=== PATIENT | male | born 1950 | race Caucasian/White ===

== ENCOUNTER → 2020-03-18 13:06 | Outpatient (CLI) | payer BC, SELFPAY ==
--- NOTE | ~2020-03-18 | XR_ITS ---
XR lumbar spine 6V w bending DATE: 03/18/2020 13:44 INDICATION: Back pain TECHNIQUE: AP, lateral, flexion and extension lateral, bilateral oblique and coned lateral lumbosacra l views COMPARISON: 12/17/2015 lumbar spine 07/20/2017 MRI lumbar spine FINDINGS: There is very severe degenerative disc disease throughout the lower thoracic and particular ly the lumbar spine with virtual obliteration of the lumbar interspaces and prominent degenerative sp urring as well as some urination and vacuum phenomenon at all levels. No fracture or bone destruction. The lumbar pedicles are intact. The sacroiliac joints are intact. IMPRESSION: Severe degenerative disc disease throughout the lumbar and lower cervical spine Reviewed, dictated and finalized at location A. ER BABYSITTER IMPRESSION: Severe degenerative disc disease throughout the lumbar and lower ce rvical spine
== END ==
PROVIDERS: PCP Family Medicine; Visit Provider Family Medicine
DX: G89.29 Other chronic pain (principal); M19.90 Unspecified osteoarthritis, unspecified site; M54.9 Dorsalgia, unspecified; M54.30 Sciatica, unspecified side; M54.16 Radiculopathy, lumbar region; M51.36 Other intervertebral disc degeneration, lumbar region
CPT/HCPCS: 72114

== ENCOUNTER → 2021-12-08 08:57 | Outpatient (CLI) | payer BC, SELFPAY ==
--- NOTE | ~2021-12-08 | XR_ITS ---
EXAMINATION: XR shoulder LT min 2V DATE: 12/08/2021 09:10 INDICATION: Left shoulder pain. TECHNIQUE: 4 views of left shoulder were obtained. COMPARISON: None. FINDINGS: Bone alignment is normal. No fracture. There is severe osteoarthritis of acromioclavicular joint and moderate osteoarthritis of glenohumeral joint. There is a loose body in bicipital groove. IMPRESSION: 1. Polyarticular osteoarthritis. Reviewed, dictated and finalized at location B.
== END ==
PROVIDERS: PCP Family Medicine; Visit Provider Family Medicine
DX: M25.512 Pain in left shoulder (principal); M19.012 Primary osteoarthritis, left shoulder
CPT/HCPCS: 73030

== ENCOUNTER 2022-09-22 12:48 | Outpatient (CLI) | payer BC, SELFPAY ==
--- NOTE | ~2022-09-22 | XR_ITS ---
Clinical Indication: Shortness of breath PA and lateral views of the chest: Comparison: 01/04/2019 Findings: The lungs are clear, without evidence of focal consolidation or pleural effusion. Cardiome diastinal silhouette is within normal limits. Bones and soft tissues are unremarkable. Impression: Normal chest. Reviewed, dictated and finalized at [facility]. Impression: Normal chest.
== END 2022-09-22 12:49 | disposition home or self-care (01) ==
LOC: ANHIMG 12:52
PROVIDERS: PCP Family Medicine; Visit Provider Nurse Practitioner
DX: R06.02 Shortness of breath (principal); R07.9 Chest pain, unspecified
CPT/HCPCS: 71046

== ENCOUNTER 2022-10-13 10:19 | Outpatient (CLI) | payer BC, SELFPAY ==
[2022-10-13 10:56] LABS: Amylase 84 U/L (30-110); Lipase 96 U/L (23-300)
[2022-10-13 10:57] LABS: Partial Thromboplastin Time 31.2 SECONDS (22.3-36.8); Prothrombin Time 14.1 Seconds (11.1-14.7)
== END 2022-10-13 10:20 | disposition home or self-care (01) ==
LOC: ANHSURGERY 10:23
PROVIDERS: Anesthesiology; PCP Family Medicine; Visit Provider Surgery
DX: Z01.818 Encounter for other preprocedural examination (principal); K80.50 Calculus of bile duct without cholangitis or cholecystitis without obstruction; N18.30 Chronic kidney disease, stage 3 unspecified
CPT/HCPCS: 36415; 82150; 83690; 85610; 85730; 86850; 86900; 86901

== ENCOUNTER 2022-10-18 00:40 | Day surgery (SDC) | payer BC, SELFPAY ==
--- NOTE | 2022-10-11 10:47 | PC.NURSE ---
Report to the Outpatient Waiting Room, entrance under the green pavilion located off [facility], at time __0600 on date __10/18/22 . Planned Procedure Time: __729 . Time changes happen often and if your time is changed the preop area will call you the afternoon before. - You and your visitor will be asked to self-screen and do not enter if you have any COVID symptoms. - A mask is optional within the hospital at this time. Patients may have clear liquids (water, carbonated beverages, clear teas, apple juice) until 3 hours prior to surgery with a maximum of 20 ounces. - No food from midnight until time of surgery - Infants may have breast milk until 4 hours before surgery, infant formula 6 hours prior to surgery. - Children will be allowed to drink immediately following surgery. If applicable, please bring a bottle or sippy cup to assist with drinking. Juice, water, soda, and popsicles are readily available. For infants on formula, please bring formula the day of surgery. Pacifiers are allowed. Take the following medications with a SIP of water the morning of surgery: __AMLODIPINE DO NOT STOP ANY OF YOUR OTHER PRESCRIPTION MEDICATIONS PRIOR TO SURGERY ?EXCEPT THE FOLLOWING Medications to discontinue per physician ___PT STATES LAST DOSE 10/04/22 ALL VITAMINS AND SUPPLEMENTS HIBICLENS SHOWER MORNING OF SURGERY Please no make-up, nail wolof, hairspray, perfume, deodorant, or body powder the day of surgery. No jewelry (including any body piercings) or valuables the day of surgery, leave them at home. Please take a shower or bath the night before, or the morning of, surgery with an antibacterial soap. Wear comfortable, loose fitting clothing. Children are encouraged to wear pajamas. - Jewelry must be removed prior to entering the operating room. Rings and piercings that are not removed may be cut off. - The hospital will not accept responsibility for valuables. - Please leave all valuables, including medications, at home the day of surgery. If you are going home after surgery, a licensed sanitation truck driver must drive you home. - NO public transportation without another adult if you receive anesthesia. - We recommend that an adult stay with you for 24 hours following discharge. - We also recommend that you do not drive, make important decision, drink alcoholic beverages, or take any drugs that were not prescribed by your health care provider for at least 24 hours after your discharge time Follow any additional instructions given to you from your surgeon. If you or anyone in your household have experienced Covid symptoms in the past week, please notify your surgeon or the nurse liaison at the phone number below for possible testing. Telephone instructions given to _PATIENT and asked if any additional questions and then verbalized understanding. Patient advised to call surgeon office or pre surgery nurse liaison [phone] if any additional questions.
[2022-10-11 11:06] VITALS: BMI 27.2
[2022-10-18] VITALS (11 sets, daily range): BP systolic 110–153; BP diastolic 50–97; PULSE 49–76; RESP 14–20; TEMP 36.1–36.7; O2SAT 96–100
[2022-10-18] MEDS: ACETAMINOPHEN 500 MG TABLET 1000 MG PO (06:32)
--- NOTE | 2022-10-18 07:09 | WPDANESEPPF ---
Anes - Initial Pre Proc Eval Procedure: Operation Date: 10/18/22 07:30 Proposed Procedures p Laparoscopic Cholecystectomy, Possible Open - Stevenson Villagran MD Date/Time: 10/18/22 07:09 Surgeon: Stevenson Villagran MD Pre Op Diagnosis: billiary colic secondary gall stones Patient Data Age: 72 Gender: M Height: 1.78 m Weight: 85.2 kg Last Vital Signs Temp 96.9 F L 10/18/22 06:22 Pulse 49 L 10/18/22 06:22 Resp 16 10/18/22 06:22 BP 153/58 H 10/18/22 06:22 Pulse Ox 99 10/18/22 06:22 O2 Del Method Room Air 10/18/22 06:22 Allergies Allergy/AdvReac Type Severity Reaction Status Date / Time No Known Allergies Allergy Verified 10/18/22 06:26 Home Medications Medication Instructions Recorded Confirmed Type eflciks-spyojfdzq-qcnv tablet 1 tablet PO DAILY 01/04/19 10/11/22 History coQ10 (ubiquinol) 100 mg capsule 100 mg PO DAILY 01/04/19 10/11/22 History glucosamine sulf dipot 1 cap PO DAILY 01/04/19 10/11/22 History chlr,msm,chond 550 mg-C 30 mg-damian 1 mg capsule (Glucosamine Chondroitin) multivitamin,xq-nmar-tlxhhjkv 1 tablet PO DAILY 01/04/19 10/11/22 History (Complete Multivitamin tablet) diazepam 5 mg tablet 5 mg PO BID PRN sleep #180 tabs 03/01/22 10/11/22 Rx amlodipine 5 mg tablet See Rx Instructions .Route 04/26/22 10/11/22 Rx .COMPLEX #90 tabs pantoprazole 40 mg tablet,delayed 40 mg PO DAILY 09/28/22 10/11/22 History release Patient hx anesthesia problems: none Family hx anesthesia problems: none Results Review: All pre-operative results and documents have been reviewed as part of the pre-operative evaluation. [facility] Past Medical History Medical History Arthritis Chronic back pain Chronic GERD CKD (chronic kidney disease) stage 3, GFR 30-59 ml/min COPD (chronic obstructive pulmonary disease) STATES BEGINNING OF COPD NO INHALERS HTN (hypertension) Surgical History Surgical History History of surgical removal of ganglion cyst Status post knee replacement Partial right oxford Family History Family History Father Hypertension Family history of cardiovascular disease Acute myocardial infarction X2 Mother Hypertension Heart disease Other No family history of diabetes mellitus No family history of malignant neoplasm Social History Social History Social History: The patient smoked for about 20 years. He is to smoke 1 pack a cigarettes a day. He is retired from working for the [employer] in maintenance. Patient uses marijuana and last time he smoked was about 3 weeks ago. Designates himself to be a full code and his Alis is his durable power mergers and acquisitions attorney. Smoking packs per day: 1 Smoking cigarettes per day: 20.0 Years smoked: 20 Smoking pack-years: 20.00 Smoking status: Former smoker Tobacco type: cigarettes Smoking end date: 02/21/86 Alcohol intake: never Substance use: current Substance use type: marijuana Other substance usage details: EVERY NIGHT-INSOMNIA Lack of Transportation: No Lack of Food: Never True Current Housing: I Have Housing Concerned About Future Housing: No Difficulty Paying Gas/Electric Bills: No Difficulty Paying for Meds: No Currently Unemployed: No Education: Associate Degree Difficulty w/ Childcare or Family Care: No Living arrangements: with family Occupation/Education: retired Additional occupation/education comments: government Gender identity (if verbalized by the patient): Male Spiritual care concerns: No Agree to blood products: Yes Mercedess - Kelli Final PreProcedure Day of Procedure 10/18/22 07:09 Patient weight: normal Heart: regular rate and rhythm Lungs: clear to auscultation Airway: Mallampati scale class
[2022-10-18] MEDS: LACTATED RINGERS 1,000 ML 30 ML IV CONT (07:24)
--- NOTE | 2022-10-18 07:25 | WPDHPUPDATE1 ---
History and Physical Update Update Date/Time: 10/18/22 07:25 History and Physical has been reviewed, including an updated exam of the patient. There are NO changes in the patient's condition. Risks, benefits, and alternatives have been discussed and questions answered. Patient agrees to proceed with procedure.
[2022-10-18] MEDS: ceFAZolin 2 GM/D5W 50 ML 2 GM/50 ML BAG IVPB (07:30)
[2022-10-18] MEDS: LIDO 1%/EPINEPHRINE 1:100,000 20 ML VIAL INFILTRATE (08:09)
[2022-10-18] MEDS: BUPivacaine HCL 0.5% 10 ML AMP 20 ML INFILTRATE (08:10)
[2022-10-18] MEDS: KETOROLAC 15 MG/ML VIAL (*BKC) IV PUSH (08:31)
--- NOTE | 2022-10-18 08:55 | W.PM.PROC2 ---
Procedure Note - Detailed Date of Procedure 10/18/22 Pre-op Diagnosis Billiary colic secondary gall stones Post-op Diagnosis Other (Chronic cholecystitis secondary to cholelithiasis) Procedure Performed Laparoscopic cholecystectomy Surgeon Stevenson Villagran MD Credit Reporting Clerk AKOSUA Carrillo Anesthesia General Indications Patient is a 72-year-old gentleman who has been having chronic epigastric right upper abdominal pain made worse with eating fatty foods. Abdominal ultrasound shows multiple gallstones. He presents now for elective laparoscopic cholecystectomy. Findings The gallbladder wall was thickened with adhesions of the omentum to the gallbladder wall. This was consistent with chronic inflammatory changes. No acute inflammatory changes were noted. Description of Procedure After informed consent was obtained patient brought to the operating room was placed supine position and general endotracheal anesthesia was administered. The abdomen was then prepped draped usual sterile fashion. A time-out was then performed correctly identifying the patient as well as procedure to be performed. He was given perioperative IV antibiotics. I then utilized a 5mm Optiview port and the abdomen the left upper quadrant 2 with a direct optical insertion. Once inside the abdomen insufflated to adequate pneumoperitoneum of 15mmHg of CO2. There were no adhesions to obscure the view of the periumbilical regions were then placed a 5mm trocar port a periumbilical position and then a 10mm trocar port in the epigastric position. Two more 5mm trocar ports placed in right subcostal position. Initially the omentum was draping over the gallbladder. I pulled down on the omentum within saw some adhesions of the omentum to the gallbladder wall. These were then divided utilizing electrocautery. Was then able to hold the gallbladder at the dome laparoscopic grasper and elevated gallbladder up over the right upper lid was right shoulder. I continue stripping down omental adhesions to the gallbladder wall bluntly. The gallbladder wall was thickened but this was chronic in nature and not acutely inflamed. I then placed a 2nd grasper on the infundibular gallbladder and then proceeded to dissect down along the edema gallbladder stripping with the visceroperitoneum until identified the cystic duct. The cystic duct was then dissected out circumferentially. The cystic artery was identified was dissected out circumferentially as well. The posterior wall the gallbladder at the infundibulum dissected free of the liver until the critical view was obtained. At this point I placed 2 clips proximally on the cystic duct and clips distally high on infundibular gallbladder. The cystic duct was divided with Endo Nirmal. In a similar fashion cystic artery clipped and divided as well. Gallbladder was then resected off the liver utilizing the cautery. It was resected without spilling any bile within the abdomen. The gallbladder is placed into an Endo-Catch bag and brought out through the epigastric port site. Gallbladder and contents were sent to pathology for examination. I then irrigated out the right upper quadrant of the abdomen the gallbladder fossa with sterile saline solution. Hemostasis was achieved utilized electrocautery in the gallbladder bed. I then aspirated the fluid from the right upper quadrant the abdomen from the pelvis. I then removed all the trocar ports under visualization all port sites appeared hemostatic. I then allowed the abdomen decompressed irrigated out the port sites sterile saline solution. Hemostasis was good. I then closed the 10mm epigastric trocar port fascial defect utilizing 0 Vicryl suture placed in a figure-eight fashion. The skin edges in all the port sites were then approximated utilizing a running subcuticular 4-0 Monocryl suture. Incisions were then cleaned the skin glue sterile dressings were applied. The patient tolerated the procedure well no complications.
[2022-10-18] MEDS: fentaNYL CITRATE INJ (*CRX) 100 MCG/2 ML VIAL 25 MCG IV PUSH ×4 (09:13→09:42)
[2022-10-18] MEDS: oxyCODONE HCL (*CRX) 5 MG TAB IR PO (10:20)
== END 2022-10-18 11:37 | disposition home or self-care (01) ==
PROVIDERS: PCP Family Medicine; Visit Provider Surgery
PROC: 0FT44ZZ Resection of Gallbladder, Percutaneous Endoscopic Approach (ICD-10-PCS; CPT 47562; principal; 2022-10-18 07:30)
DX: K80.10 Calculus of gallbladder with chronic cholecystitis without obstruction (principal); K21.9 Gastro-esophageal reflux disease without esophagitis; I12.9 Hypertensive chronic kidney disease with stage 1 through stage 4 chronic kidney disease, or unspecified chronic kidney disease; N18.30 Chronic kidney disease, stage 3 unspecified; M19.90 Unspecified osteoarthritis, unspecified site; J44.9 Chronic obstructive pulmonary disease, unspecified; Z87.891 Personal history of nicotine dependence; F12.90 Cannabis use, unspecified, uncomplicated
CPT/HCPCS: 47562; 88304; A9270; C1713; J0330; J0360; J0690; J1100; J1885; J2250; J2405; J2704; J3010; J7030; J7120

== ENCOUNTER 2023-11-24 11:59 | Outpatient (CLI) | payer BC, SELFPAY ==
--- NOTE | ~2023-11-24 | XR_ITS ---
Left ankle Technique: AP and lateral views were obtained. Clinical History: Pain Findings: No acute fracture or dislocation is seen. Probable small chronic avulsion fracture fragment s at the tip of the medial malleolus. Ankle mortise and other visualized joint spaces are preserved. Vascular calcifications noted. Impression: No acute abnormality. Probable small chronic avulsion fracture fragments at the tip of the medial mal leolus. Reviewed, dictated and finalized at location . Impression: No acute abnormality. Probable small chronic avulsion fracture fragments at the tip of the medial malleolus.
== END 2023-11-24 12:00 | disposition home or self-care (01) ==
PROVIDERS: PCP Nurse Practitioner; Visit Provider Nurse Practitioner
DX: M25.572 Pain in left ankle and joints of left foot (principal)
CPT/HCPCS: 73600

== ENCOUNTER 2023-11-29 15:58 | Outpatient (CLI) | payer BC, SELFPAY ==
--- NOTE | ~2023-11-29 | XR_ITS ---
Cervical Spine: AP, lateral, open-mouth views Clinical History: Pain Findings: There is mild reversal normal cervical lordosis. No fracture seen. There is 3 mm anterolist hesis of C2 over C3. There is advanced degenerative disc narrowing at C3-C4, C5-C6, C6-C7. There is m oderate to advanced facet arthropathy throughout the cervical spine. Pre-vertebral soft tissues are u nremarkable. Impression: Advanced degenerative spondylosis, as above. 3 mm anterolisthesis of C2 over C3. Reviewed, dictated and finalized at location M. Impression: Advanced degenerative spondylosis, as above. 3 mm anterolisthesis of C2 over C3.
== END 2023-11-29 15:59 | disposition home or self-care (01) ==
PROVIDERS: PCP Nurse Practitioner; Visit Provider Nurse Practitioner
DX: M47.812 Spondylosis without myelopathy or radiculopathy, cervical region (principal); M43.12 Spondylolisthesis, cervical region
CPT/HCPCS: 72040

== ENCOUNTER 2024-05-23 11:16 | Outpatient (CLI) | payer BC, SELFPAY ==
--- NOTE | ~2024-05-23 | XR_ITS ---
Left Shoulder Technique: AP and scapular Y views were obtained. Clinical History: Pain Findings: No fracture or dislocation is seen. Osseous alignment is anatomic. The glenohumeral and acr omioclavicular joints demonstrate mild degenerative change. Soft tissues are unremarkable. Impression: Mild degenerative changes, as above. Reviewed, dictated and finalized at location . Impression: Mild degenerative changes, as above.
--- NOTE | ~2024-05-23 | XR_ITS ---
Cervical Spine: AP, lateral, open-mouth views Clinical History: Pain COMPARISON: 11/29/2023 Findings: Osseous alignment is unchanged from prior exam. No acute fracture or sublocation. Stable ad vanced degenerative disc change at C3-C4, C5-C6, and C6-C7. Stable moderate facet arthropathy at the upper cervical spine in particular. Pre-vertebral soft tissues are unremarkable. Impression: No acute abnormality or significant interval change. Advanced degenerative spondylosis, as above, stable from prior exam. Reviewed, dictated and finalized at location M. Impression: No acute abnormality or significant interval change. Advanced degenerative spondylosis, as above, stable from prior exam.
== END 2024-05-23 11:17 | disposition home or self-care (01) ==
LOC: GOSHIMG 11:17
PROVIDERS: PCP Nurse Practitioner; Visit Provider Nurse Practitioner
DX: M25.512 Pain in left shoulder (principal); M54.2 Cervicalgia; M47.812 Spondylosis without myelopathy or radiculopathy, cervical region
CPT/HCPCS: 72040; 73030